=== PATIENT | female | born 1995 | race Caucasian/White ===

== ENCOUNTER 2022-06-24 11:26 | Outpatient (CLI) | payer BC, SELFPAY ==
[2022-06-24 11:46] LABS: Hemoglobin 12.1 g/dL (12.0-15.0); Mean Corpuscular Hemoglobin 30.3 pg (27.0-31.0); Mean Corpuscular Volume 92.7 fL (78.0-102.0); Red Blood Count 3.99 M/mm3 (4.20-5.40); White Blood Count 6.1 K/mm3 (4.8-10.8)
[2022-06-24 11:47] LABS: Basophils Absolute Auto 0.04 K/mm3 (0.00-0.10); Basophils Percent Auto 0.7 % (0.0-1.0); Eosinophils Absolute Auto 0.09 K/mm3 (0.02-0.50); Eosinophils Percent Auto 1.5 % (1.0-6.0); Immature Granulocyte Absolute 0.01 K/mm3 (0.00-0.00); Immature Granulocyte Percent A 0.2 % (0.0-0.0); Lymphocytes Absolute Auto 2.03 K/mm3 (1.10-4.50); Lymphocytes Percent Auto 33.5 % (18.0-42.0); Mean Corpuscular HGB Conc 32.7 g/dL (32.0-36.0); Mean Platelet Volume 10.6 fl (9.2-11.8); Monocytes Absolute Auto 0.43 K/mm3 (0.10-0.90); Monocytes Percent Auto 7.1 % (2.0-11.0); Neutrophils Absolute Auto 3.5 K/mm3 (1.7-7.2); Platelet Count Result 194 K/mm3 (150-420); Red Cell Distribution Width 12.3 % (11.6-14.4)
[2022-06-24 12:00] LABS: INR 0.9; Partial Thromboplastin Time 25.9 SEC (23.90-30.70); Prothrombin Time 10.2 Seconds (9.50-12.10)
[2022-06-24 12:19] LABS: Alanine Aminotransferase 26 U/L (14-59); Albumin Level 3.7 g/dL (3.4-5.0); Alkaline Phosphatase 63 U/L (46-116); Anion Gap 7 mmol/L (8-16); Aspartate Amino Transferase 16 U/L (15-37); Bilirubin,Total 0.8 mg/dL (0.00-1.00); Blood Urea Nitrogen 15 mg/dL (7-18); CRP < 0.5 mg/dL (0.0-0.9); Calcium 8.5 mg/dL (8.5-10.1); Carbon Dioxide 30 mmol/L (21-32); Chloride 104 mmol/L (98-108); Estimated Glomerular Filt Rate > 60; Ferritin 41 ng/mL (8-252); Glucose 62 mg/dL (70-99); Iron 114 ug/dL (50-170); Osmolality Calculated 290 mOsm/kg (285-295); Percent Iron Saturation 31 % (12-57); Potassium 4.1 mmol/L (3.5-5.1); Sodium 141 mmol/L (136-145); Thyroid Stimulating Hormone 1.13 uIU/mL (0.36-3.74); Total Protein 7.4 g/dL (6.4-8.2)
[2022-06-24 12:42] LABS: Erythrocyte Sedimentation Rate 14 mm/hr (0-15)
[2022-07-02 10:32] LABS: ANCA Screen Negative (Negative); Myeloperoxidase Ab <1.0 AI (<1.0); Proteinase-3 Ab <1.0 AI (<1.0); S cerevisiae Ab (IgA) 7.4 U (<=20.0); S cerevisiae Ab (IgG) 8.7 U (<=20.0)
== END 2022-06-24 11:27 | disposition home or self-care (01) ==
PROVIDERS: PCP Internal Medicine; Visit Provider Nurse Practitioner Family
DX: K92.1 Melena (principal); R10.0 Acute abdomen; D69.9 Hemorrhagic condition, unspecified
CPT/HCPCS: 36415; 80053; 82728; 83540; 83550; 84439; 84443; 85025; 85610; 85652; 85730; 86036; 86038; 86140; 86671

== ENCOUNTER 2022-08-25 10:48 | Emergency (ER) | payer BC, SELFPAY ==
--- NOTE | ~2022-08-25 | CT_ITS ---
EXAMINATION: CT brain wo con DATE: 08/25/2022 13:01 INDICATION: Right-sided neck pain. Right arm and leg numbness. TECHNIQUE: Computed tomography (CT) of the head was performed without intravenous contrast. The mA wa s adjusted according to patient size. Iterative reconstruction technique was employed. The dose-lengt h product was 529.67 mGy-cm. COMPARISON: None FINDINGS: There is no intracranial hemorrhage, acute infarction, or abnormal intracranial mass lesion . The ventricles are normal in size. There is mild mucosal thickening in the ethmoid sinuses. The mas toid air cells are normal. The orbits are normal. IMPRESSION: 1. Normal brain. Reviewed, dictated and finalized at location A. IMPRESSION: 1. Normal brain.
--- NOTE | ~2022-08-25 | CT_ITS ---
EXAMINATION: CT cervical spine wo con DATE: 08/25/2022 13:00 INDICATION: Right-sided neck pain. TECHNIQUE: Computed tomography (CT) of the cervical spine was performed without intravenous contrast. Automated exposure control and iterative reconstruction technique were employed. The dose-length pro duct was 178.16 mGy-cm. COMPARISON: None FINDINGS: There is an aberrant right subclavian artery. There is hypolordosis of cervical spine. Vert ebral bodies and intervertebral disc heights are normal. At C7-T1, there is mild bilateral facet join t osteophytes. No neural foraminal stenosis or central canal stenosis. IMPRESSION: 1. 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 Reviewed, dictated and finalized at location A.
[2022-08-25 10:54] VITALS: BP 124/78; PULSE 83; RESP 16; TEMP 36.3; O2SAT 98
--- NOTE | 2022-08-25 12:41 | ED.GENADULT ---
HPI - General Adult General Chief complaint: Neuro Symptoms/Deficit Stated complaint: asymptomatic stroke Time Seen by Provider: 08/25/22 11:55 History of Present Illness HPI narrative: 26-year-old female presented ED for evaluation of right-sided neck pain that started when she woke up. Patient states that she was also having some decreased sensation on the right side as well. Patient presented to an urgent care and was directed to the ED for further work-up. Patient denies any prior history of TBI, CVA, TIA, DE, underlying bleeding or clotting disorder. Patient states she is still having the right-sided neck pain. Related Data Allergies Allergy/AdvReac Type Severity Reaction Status Date / Time amoxicillin Allergy Unknown Rash Verified 08/25/22 10:52 Sulfa (Sulfonamide Allergy Rash Verified 08/25/22 10:52 Antibiotics) Review of Systems Review of Systems: All systems reviewed & are unremarkable except as noted in HPI and below Exam Narrative: APPEARANCE: Well appearing, no pain, no distress, well-nourished. HEAD: normocephalic, atraumatic. EYES: PERRLA/EOMI, conjunctivae clear. NOSE: Normal no drainage EARS:TMS clear with good light reflex. THROAT: Pharynx clear, no exudate. NECK: Supple. No adenopathy, no masses. Reproducible tenderness to the muscles of the right lateral neck into the shoulder. Normal range of motion of the neck. RESPIRATORY: Airway patent, respirations nonlabored. Clear to auscultation bilaterally, no rales, rhonchi, wheezing. CARDIOVASCULAR: Regular rate and rhythm without murmurs rubs or gallops. ABDOMINAL: Soft, nontender, nondistended, normal bowel sounds MUSCULOSKELETAL: Tenderness of the right lateral neck muscles. NEURO: Alert. Cranial nerves II through XII intact. Good gait. Good coordination. Normal strength and reflexes. No ataxia, no a drift. Patient exam was initially limited by pain in the shoulder but she was able to be evaluated and had a normal neuro exam. Patient denied any change in sensation of the upper and lower extremities. SKIN: Warm, dry. Normal Color Course Course Emergency Course: 26-year-old female presented the ED for evaluation of right neck pain with associated right-sided paresthesia. Patient's head and neck CT were negative for acute abnormality. Patient did feel improved with treatment. Low concern for MS or intracranial abnormality. Patient's symptoms seems more consistent with paresthesia from muscular strain. Patient will be provided a Medrol Dosepak and Flexeril for symptom control at home. Patient was updated the results of her work-up and on the plan for treatment. All questions concerns were addressed. Patient was well-appearing at time of discharge from the emergency department. Vital Signs Vital signs: Vital Signs Temperature 97.4 F L 08/25/22 10:54 Pulse Rate 83 08/25/22 10:54 Respiratory Rate 16 08/25/22 10:54 Blood Pressure 124/78 08/25/22 10:54 Pulse Oximetry 98 08/25/22 10:54 Temperature 97.4 F L 08/25/22 10:54 Pulse Rate 80 08/25/22 14:12 Respiratory Rate 16 08/25/22 14:12 Blood Pressure 121/74 08/25/22 14:12 Pulse Oximetry 98 08/25/22 14:12 Medical Decision Making Differential Diagnosis Differential Diagnosis: Muscular strain, neck pain, CVA, cervical radiculopathy Vital Signs Vital Signs: Vital Signs Temperature 97.4 F L 08/25/22 10:54 Pulse Rate 83 08/25/22 10:54 Respiratory Rate 16 08/25/22 10:54 Blood Pressure 124/78 08/25/22 10:54 Pulse Oximetry 98 08/25/22 10:54 Temperature 97.4 F L 08/25/22 10:54 Pulse Rate 80 08/25/22 14:12 Respiratory Rate 16 08/25/22 14:12 Blood Pressure 121/74 08/25/22 14:12 Pulse Oximetry 98 08/25/22 14:12 Discharge Plan Discharge Clinical Impression: Neck pain on right side, Cervical radiculopathy Patient Disposition: Home, Self-Care Condition: Stable Instructions: Antibiotic Form, Cervical Radiculop
[2022-08-25] MEDS: CYCLOBENZAPRINE HCL 10 MG TABLET PO (13:01)
[2022-08-25] MEDS: ACETAMINOPHEN 325 MG TABLET 650 MG PO (13:01)
[2022-08-25 14:12] VITALS: BP 121/74; PULSE 80; RESP 16; O2SAT 98
== END 2022-08-25 14:13 | disposition home or self-care (01) ==
PROVIDERS: Emergency Provider Emergency Medicine; PCP Internal Medicine
DX: M54.12 Radiculopathy, cervical region (principal)
CPT/HCPCS: 70450; 72125; 99284; A9270

== ENCOUNTER 2022-12-11 06:35 | Outpatient (CLI) | payer BC, SELFPAY ==
--- NOTE | 2022-12-14 08:52 | WPDNEUROLOGY ---
Neurology EEG Report General Information Date of Study: 12/11/22 TEST Routine EEG DIAGNOSIS Seizures CONDITION OF RECORDING Awake, drowsy EEG NUMBER [id number] CLINICAL HISTORY Patient reports she started having seizures about 10 years ago after a head injury. She had one seizure every couple of years, but last month had 12 seizures within a few hours. Then she seemed to have several smaller seizures over the next few days. EEG DESCRIPTION During the awake state with eyes closed the background consists of 9-10 Hz posterior dominant rhythm which attenuates appropriately with eye opening. The recording is continuous. There is a well developed anterior-posterior gradient. No significant asymmetries of background activities are noted. With drowsiness there is waxing and waning of the dominant rhythm with eventual replacement by a mixture of beta, alpha, and theta activity. Patient did not enter stage II sleep. There are no epileptiform discharges or seizures during this recording. Hyperventilation and photic stimulation did not elicit any abnormal response. IMPRESSION This is a normal routine EEG recorded in awake and drowsy states. There are no electrographic seizures identified, nor are there any epileptiform discharges. Please note that a normal EEG cannot exclude a seizure disorder. Clinical correlation is recommended.
== END 2022-12-11 06:36 | disposition home or self-care (01) ==
LOC: ANHNEURO 06:36
PROVIDERS: PCP Internal Medicine; Visit Provider Internal Medicine
DX: R56.9 Unspecified convulsions (principal)
CPT/HCPCS: 95816

== ENCOUNTER 2022-12-16 16:19 | Outpatient (CLI) | payer BC, SELFPAY ==
--- NOTE | ~2022-12-16 | MR_ITS ---
MRI of the brain Clinical History: Convulsions Technique: Axial and sagittal T1-weighted images were acquired. These were followed by axial T2-weigh nafisa, diffusion weighted, gradient, and FLAIR images. Following intravenous administration of 13 cc Mu ltiHance gadolinium, T1-weighted fat-sat imaging was performed in the axial, coronal, and sagittal pl anes. Findings: No abnormal signal identified in the brain parenchyma. There is susceptibility artifact obs curing the frontal lobes on some sequences. No acute infarct, internal hemorrhage, or mass lesion ximena ntified. Ventricles and subarachnoid spaces are unremarkable. Orbits are unremarkable. Paranasal sinuses and m astoid air cells are grossly clear. Sagittal midline structures are intact. No abnormal postcontrast enhancement identified. IMPRESSION: Unremarkable exam. Reviewed, dictated and finalized at location M. IMPRESSION: Unremarkable exam.
== END 2022-12-16 16:20 | disposition home or self-care (01) ==
PROVIDERS: PCP Internal Medicine; Visit Provider Internal Medicine
DX: R56.9 Unspecified convulsions (principal)
CPT/HCPCS: 70553; A9577